=== PATIENT | female | born 1975 | race Caucasian/White ===

== ENCOUNTER → 2018-12-30 | Outpatient (CLI) | payer BC ==
--- NOTE | 2018-12-30 10:55 | REP ---
Clinical: Trauma. Technique: AP, lateral, bilateral oblique views left foot. Findings: Mild lateral swelling. The osseous structures and joint spaces are intact and there is no evidence for acute fracture or dislocation. Small heel spur. Surrounding soft tissues are unremarkable. No subcutaneous emphysema or radiodense foreign body. Impression: No acute fracture or dislocation. Electronically Signed by Blake Mixon MD 12/30/2018 10:47 A
== END ==
LOC: M WUC 10:28
PROVIDERS: ATTEND Nurse Practitioner Family
DX: M79.672 Pain in left foot (principal)